=== PATIENT | male | born 1940 | race Caucasian/White ===

== ENCOUNTER → 2019-04-29 07:49 | Outpatient (REF) | payer MEDICARE, SELFPAY | LOC: ANHLAB 07:49 | PROVIDERS: Visit Provider Nurse Practitioner | DX: C44.311 Basal cell carcinoma of skin of nose (principal); C44.01 Basal cell carcinoma of skin of lip | CPT/HCPCS: 88305; 88331 ==

== ENCOUNTER → 2019-11-14 15:17 | Outpatient (REF) | payer MEDICARE, SELFPAY | LOC: ANHLAB 15:17 | PROVIDERS: Visit Provider Nurse Practitioner | DX: C44.311 Basal cell carcinoma of skin of nose (principal) | CPT/HCPCS: 88305 ==

== ENCOUNTER → 2020-01-06 07:39 | Outpatient (REF) | payer MEDICARE, SELFPAY | LOC: ANHLAB 07:39 | PROVIDERS: Visit Provider Nurse Practitioner | DX: C44.311 Basal cell carcinoma of skin of nose (principal) | CPT/HCPCS: 88305; 88331 ==

== ENCOUNTER → 2020-05-07 11:44 | Outpatient (REF) | payer MEDICARE, SELFPAY | LOC: ANHLAB 11:44 | PROVIDERS: Visit Provider Nurse Practitioner | DX: C44.612 Basal cell carcinoma of skin of right upper limb, including shoulder (principal); D04.5 Carcinoma in situ of skin of trunk | CPT/HCPCS: 88305 ==

== ENCOUNTER 2022-05-02 09:00 | Outpatient (NON) | payer MEDICARE, SELFPAY | END 2022-05-02 09:01 | disposition home or self-care (01) | PROVIDERS: Visit Provider Nurse Practitioner | DX: C44.319 Basal cell carcinoma of skin of other parts of face (principal) | CPT/HCPCS: 88305 ==

== ENCOUNTER 2022-06-13 13:28 | Outpatient (NON) | payer MEDICARE, SELFPAY | END 2022-06-13 13:29 | disposition home or self-care (01) | LOC: ANHLAB 13:29 | PROVIDERS: Visit Provider Nurse Practitioner | DX: C44.319 Basal cell carcinoma of skin of other parts of face (principal) | CPT/HCPCS: 88305; 88331 ==

== ENCOUNTER 2022-10-25 08:00 | Outpatient (NON) | payer MEDICARE, SELFPAY | END 2022-10-25 08:01 | disposition home or self-care (01) | LOC: ANHLAB 10-26 14:39 | PROVIDERS: Visit Provider Nurse Practitioner | DX: C44.1192 Basal cell carcinoma of skin of left lower eyelid, including canthus (principal) | CPT/HCPCS: 88305 ==

== ENCOUNTER 2023-01-02 14:11 | Outpatient (NON) | payer MEDICARE, SELFPAY | END 2023-01-02 14:12 | disposition home or self-care (01) | PROVIDERS: Visit Provider Nurse Practitioner | DX: C44.91 Basal cell carcinoma of skin, unspecified (principal); C44.1192 Basal cell carcinoma of skin of left lower eyelid, including canthus | CPT/HCPCS: 88305; 88331 ==